=== PATIENT | male | born 1950 ===

== ENCOUNTER → 2016-11-16 | Outpatient (CLI) | payer OTHER | END | disposition home or self-care (01) | LOC: C.PATHSPEC 17:52 | PROVIDERS: ATTEND Plastic Surgery | DX: C44.81 Basal cell carcinoma of overlapping sites of skin (principal) ==

== ENCOUNTER → 2017-09-27 | Outpatient (CLI) | payer OTHER | END | disposition home or self-care (01) | LOC: C.LABSPEC 17:04 | PROVIDERS: ATTEND Nurse Practitioner Family | DX: N39.41 Urge incontinence (principal) ==